=== PATIENT | female | born 1980 | race Caucasian/White ===

== ENCOUNTER 2020-08-11 09:08 | Emergency (ER) | payer OTHER ==
[2020-08-11 09:23] VITALS: TEMP 97.6; BMI 26.6
[2020-08-11] MEDS ORDERED: ACETAMINOPHEN 500 MG TABLET (FP) PO ONE (09:34)
[2020-08-11] MEDS ORDERED: ACETAMINOPHEN 500 MG TABLET (FP) ONE (09:51)
[2020-08-11 10:17] LABS: BASO % 0.6 % (0-2.0); HEMATOCRIT 39.5 % (32.4-45.2); HEMOGLOBIN 13.2 GM/dL (10.7-15.3); LYMPH % 37.7 % (8-40); MCH 29.8 pg (25.7-33.7); MCHC 33.4 g/dl (32.0-36.0); MEAN CELL VOLUME 89.1 fl (80-96); MEAN PLT VOLUME 9.2 fl (7.5-11.1); MONO % 7.6 % (3.8-10.2); NEUT % 53.1 % (42.8-82.8); PLATELET COUNT 242 10^3/uL (134-434); RBC 4.43 M/mm3 (3.60-5.2); RDW 13.3 % (11.6-15.6); WHITE BLOOD COUNT 4.5 K/mm3 (4.0-10.0)
[2020-08-11 10:18] LABS: EPI CELLS 20 /uL (0-25.1); HYALINE CASTS 2 /uL (0-3.1); URINE APPEARANCE CLEAR; URINE BACTERIA 1185 /uL (0-1359); URINE BILIRUBIN NEGATIVE (NEGATIVE); URINE COLOR YELLOW; URINE GLUCOSE (UA) NEGATIVE (NEGATIVE); URINE KETONE NEGATIVE (NEGATIVE); URINE LEUK ESTERASE NEGATIVE (NEGATIVE); URINE NITRITE NEGATIVE (NEGATIVE); URINE PROTEIN NEGATIVE (NEGATIVE); URINE RBC 28 /uL (0-23.9); URINE UROBILINOGEN 0.2 mg/dL (0.2-1.0); URINE WBC 20 /uL (0-25.8)
[2020-08-11 10:20] LABS: HCG,QUALITATIVE URINE Positive
[2020-08-11 10:30] LABS: BLOOD UREA NITROGEN 10.4 mg/dL (7-18); CALCIUM 8.8 mg/dL (8.5-10.1)
[2020-08-11 10:34] LABS: CREATININE 0.5 mg/dL (0.55-1.3)
[2020-08-11 12:46] VITALS: BP 98/65; PULSE 58
[2020-08-11] MEDS ORDERED: RHO(D) IMMUNE GLOBULIN 1,500 UNIT DISP.SYRIN IM ONE (13:08)
== END 2020-08-11 14:03 | disposition home or self-care (01) ==
LOC: JER 09:08
PROC: 3E023GC Introduction of Other Therapeutic Substance into Muscle, Percutaneous Approach (ICD-10-PCS; principal; 2020-08-11)
DX: O20.0 Threatened abortion (principal)
CPT/HCPCS: 36415; 76817-TC; 80048; 81003; 84702; 84703; 85025; 86850; 86900; 86901; 86999; 87086; 99284-25; J1561

== ENCOUNTER 2020-08-22 11:01 | Emergency (ER) | payer OTHER ==
[2020-08-22 11:19] VITALS: BP 100/60; PULSE 72; TEMP 97.9; BMI 26.9
== END 2020-08-22 13:50 | disposition home or self-care (01) ==
LOC: JER 11:01
DX: O03.9 Complete or unspecified spontaneous abortion without complication (principal)
CPT/HCPCS: 36415; 76817-TC; 84702; 99284-25

== ENCOUNTER 2022-06-12 20:37 | Emergency (ER) | payer OTHER ==
[2022-06-12 20:45] VITALS: RESP 16; TEMP 98.1; BMI 28.3
[2022-06-12] MEDS ORDERED: ACETAMINOPHEN 650 MG/20.3 ML ORAL SOLUTION (CUPS) PO ONE (21:19)
[2022-06-12] MEDS ORDERED: ACETAMINOPHEN 650 MG/20.3 ML ORAL SOLUTION (CUPS) ONE (21:36)
[2022-06-12 22:15] LABS: BASO % 0.3 % (0-2.0); EOS % 0.9 % (0-4.5); HEMATOCRIT 35.3 % (32.4-45.2); LYMPH % 38.8 % (8-40); MCH 29.8 pg (25.7-33.7); MCHC 34.1 g/dl (32.0-36.0); MEAN CELL VOLUME 87.3 fl (80-96); MEAN PLT VOLUME 8.5 fl (7.5-11.1); PLATELET COUNT 237 10^3/uL (134-434); RBC 4.04 M/mm3 (3.60-5.2); RDW 13.4 % (11.6-15.6); WHITE BLOOD COUNT 7.2 K/mm3 (4.0-10.0)
[2022-06-12 22:24] LABS: POTASSIUM 4.1 mmol/L (3.5-5.1)
[2022-06-12 22:26] LABS: URINE APPEARANCE CLEAR; URINE BILIRUBIN NEGATIVE (NEGATIVE); URINE COLOR YELLOW; URINE GLUCOSE (UA) NEGATIVE (NEGATIVE); URINE KETONE NEGATIVE (NEGATIVE); URINE LEUK ESTERASE NEGATIVE (NEGATIVE); URINE NITRITE NEGATIVE (NEGATIVE); URINE PROTEIN NEGATIVE (NEGATIVE); URINE UROBILINOGEN 0.2 mg/dL (0.2-1.0)
[2022-06-12 22:31] LABS: CALCIUM 9.8 mg/dL (8.5-10.1)
[2022-06-12 22:32] LABS: ALBUMIN 3.3 g/dl (3.4-5.0); BLOOD UREA NITROGEN 8.8 mg/dL (7-18); MAGNESIUM 1.9 mg/dL (1.8-2.4)
[2022-06-12 22:35] LABS: CREATININE 0.5 mg/dL (0.55-1.3)
[2022-06-12 22:37] LABS: BILIRUBIN,TOTAL 0.2 mg/dL (0.2-1); TOT PROT 6.5 g/dl (6.4-8.2)
[2022-06-13 00:10] VITALS: BP 104/70; PULSE 65
== END 2022-06-13 00:10 | disposition home or self-care (01) ==
LOC: JER 20:37
DX: O02.1 Missed abortion (principal); R51.9 Headache, unspecified; Z3A.12 12 weeks gestation of pregnancy
CPT/HCPCS: 36415; 76817-TC; 80053; 81003; 83735; 84702; 85025; 99284-25